=== PATIENT | male | born 1975 | race Caucasian/White ===

== ENCOUNTER 2019-02-10 11:30 | Emergency (ER) | payer OTHER ==
[2019-02-10 11:36] VITALS: BP 123/79; TEMP 99.6; BMI 27.0
[2019-02-10] MEDS ORDERED: BENADRYL IM STA (11:48)
[2019-02-10] MEDS ORDERED: DECADRON 4 MG/ML SDV IM STA (11:48)
--- NOTE | 2019-02-10 11:50 | ED.PDOC ---
General ED Provider: Dr. SAGRARIO VILLATORO Chief Complaint: Rash Stated Complaint: rash obilateral hand /feet and abdomen was working out doors most of the day 1 day ago Time Seen by Physician: 11:49 Mode of Arrival: Walk-In Information Source: Patient Exam Limitations: No limitations Nursing and Triage Documentation Reviewed and Agree: Yes Does patient meet sepsis criteria?: No System Inflammatory Response Syndrome: Not Applicable Sepsis Protocol: For patient's 13 years and over: Temp is 96.8 and below OR 101 and greater Pulse >90 BPM Resp >20/minute Acutely Altered Mental Status Are patient's symptoms suggestive of a new infection, such as: -Pneumonia -Skin, Soft Tissue -Endocarditis -UTI -Bone, Joint Infection -Implantable Device -Acute Abdominal Infection -Wound Infection -Meningitis -Blood Stream Catheter Infection -Unknown Skin Complaint Exam - Skin Rash/Itching Complaint/Exam Onset/Duration: 1 day Symptoms Are: Still present Initial Severity: Mild Current Severity: Mild Potential Exposures: Reports: Plants, Insect bite Aggravating: Reports: None Alleviating: Reports: None Associated Signs and Symptoms: Denies: Difficulty breathing, Fever, Chills Skin Findings: Present: Papules Differential Diagnoses: Allergic Reaction, Poison [place] Review of Systems - Review Of Systems Constitutional: Reports: No symptoms Eyes: Reports: No symptoms Ears, Nose, Mouth, Throat: Reports: No symptoms Respiratory: Reports: No symptoms Cardiac: Reports: No symptoms GI: Reports: No symptoms : Reports: No symptoms Musculoskeletal: Reports: No symptoms Skin: Reports: Rash (see photos ) Neurological: Reports: No symptoms Endocrine: Reports: No symptoms Hematologic/Lymphatic: Reports: No symptoms All Other Systems: Reviewed and Negative Past Medical History - Past Medical History Endocrine: Reports: None Cardiovascular: Reports: None Respiratory: Reports: None Hematological: Reports: None Gastrointestinal: Reports: None Genitourinary: Reports: None Neuro/Psych: Reports: None Musculoskeletal: Reports: None Cancer: Reports: None - Surgical History General Surgical History: Reports: Unknown - Family History Family History: Reports: Unknown - Social History Smoking Status: Current every day smoker, Heavy tobacco smoker Hx Substance Use: No Alcohol Screening: Occasionally - Immunizations Tetanus Shot up to Date: No Physical Exam - Physical Exam Appearance: Well-appearing, No pain distress, Well-nourished Eyes: ALAN, EOMI, Conjunctiva clear ENT: Ears normal, Nose normal, Oropharynx normal Respiratory: Airway patent, Breath sounds clear, Breath sounds equal, Respirations nonlabored Cardiovascular: RRR, Pulses normal, No rub, No murmur GI/: Soft, Nontender, No masses, Bowel sounds normal, No Organomegaly Musculoskeletal: Normal strength, ROM intact, No edema, No calf tenderness Skin: Warm, Dry (rash on dorsal aspects of hand anf feet also abdomen) Neurological: Sensation intact, Motor intact, Reflexes intact, Cranial nerves intact, Alert, Oriented Psychiatric: Affect appropriate, Mood appropriate Critical Care Note - Critical Care Note Total Time (mins): 0 Course - Course Orders, Labs, Meds: Orders Category Date Time Status Dexamethasone 4 mg/ml Inj [Decadron 4 mg/ml Sdv] MEDS 02/10/19 11:48 Stat 4 mg IM ONCE STA Diphenhydramine Inj [Benadryl] MEDS 02/10/19 11:48 Stat 25 mg IM ONCE STA Vital Signs: Temp Pulse Resp BP Pulse Ox 02/10/19 11:31 99.6 F 107 H 20 123/79 98 Departure - Departure Time of Disposition: 11:50 Disposition: HOME SELF-CARE Discharge Problem: Acute maculopapular rash Instructions: Acute Rash (ED) Condition: Good Pt referred to PMD for follow-up: Yes IPMP verified?: No Additional Instructions: Please call your Family Physician as soon as possible to schedule a follow-up appointment. Allergies/Adverse Reactions: Allergies APPLES Adverse Reaction (Uncoded 05/22/16 19:42) Home Medications: Ambulatory Orders 1 [No Reported Medications] 05/22/16
== END 2019-02-10 12:15 | disposition home or self-care (01) ==
LOC: ED 11:30
DX: R21 Rash and other nonspecific skin eruption (principal); F17.210 Nicotine dependence, cigarettes, uncomplicated
CPT/HCPCS: 96372; 99282